=== PATIENT | male | born 1980 | race Caucasian/White ===

== ENCOUNTER 2020-09-20 09:27 | Emergency (ER) | payer BC ==
[~2020-09-20] VITALS: Ht 185.4 cm; Wt 91.8 kg
[2020-09-20] MEDS ORDERED: HYDROcodone/acetaminophen 10/325mg tab PO ONE (09:40)
[2020-09-20] MEDS ORDERED: dexamethasone sod phosphate 10mg/ml inj IV STA (09:57)
[2020-09-20] MEDS ORDERED: diazepam inj 5 MG/ML inj. IV ONE (10:00)
[2020-09-20] MEDS ORDERED: ondansetron/PF 4mg/2ml inj IV ONE (10:00)
[2020-09-20] MEDS ORDERED: ketorolac trometh. 30mg/ml inj. IV ONE (10:00)
[2020-09-20 10:02] VITALS: BP 125/84
[2020-09-20] MEDS ORDERED: HYDR-4383 PO (10:30)
[2020-09-20] MEDS ORDERED: CYCL-1 PO (10:30)
== END 2020-09-20 11:20 | disposition home or self-care (01) ==
LOC: ER 09:27
DX: M54.30 Sciatica, unspecified side (principal); G89.29 Other chronic pain; M54.5 Low back pain; Z79.899 Other long term (current) drug therapy
CPT/HCPCS: 96374; 96375; 99284; J1100; J1885; J2405; J3360